=== PATIENT | female | born 2005 | race Caucasian/White ===

== ENCOUNTER 2024-01-02 10:32 | Inpatient (IN) | payer OTHER ==
[2024-01-02] MEDS: LACTATED RINGERS 1,000 ML IV SCH (11:18)
[2024-01-02 11:26] LABS: Glucose,Whole Blood 82 mg/dL (70-110)
[2024-01-02] MEDS ORDERED: TRANEXAMIC 1,000 MG/100ML-NACL 1,000 MG in EMPTY BAG 1 BAG IV PRN (11:30)
[2024-01-02] MEDS ORDERED: LIDOCAINE 0.5% (PF) 5 MG/ML (50 ML SDV) SQ PRN (11:30)
[2024-01-02] MEDS ORDERED: OXYTOCIN 10 UNIT/ML 1 ML VIAL IM PRN (11:30)
[2024-01-02] MEDS ORDERED: TERBUTALINE 1 MG/ML VIAL SQ PRN (11:30)
[2024-01-02] MEDS ORDERED: CARBOPROST TROMETHAMINE 250 MCG/ML 1 ML AMP IM PRN (11:30)
[2024-01-02] MEDS ORDERED: METHYLERGONOVINE 0.2 MG/ML 1 ML AMP IM PRN (11:30)
[2024-01-02] MEDS ORDERED: miSOPROStoL 200 MCG TAB PO PRN (11:30)
[2024-01-02] MEDS: AMPICILLIN 2,000 MG in SODIUM CHLORIDE 0.9% 100 ML IVPB STA (11:46)
--- NOTE | 2024-01-02 11:46 | P.HPOB ---
History of Present Illness H&P Date: 01/02/24 Chief Complaint: IUP at 35 and 0/7 weeks, premature rupture of membranes 18-year-old 1 para 0 at 35-0/7 weeks that presents with complaints of spontaneous rupture of membranes this a.m. around 6:00. Patient states fluid was clear in nature. Patient denies contractions. Patient has been receiving routine care that has been complicated by diagnosis of gestational diabetes, late care. Blood sugars have been moderately well- controlled. On blood work this patient has a blood type B+, rubella status immune RPR is nonreactive, hepatitis B surface engine negative, HIV negative, group beta strep culture is unknown as she is 35 weeks. Review of Systems Constitutional: Denies chills, Denies fatigue, Denies fever Ears, nose, mouth and throat: Denies headache Cardiovascular: Reports leg edema Respiratory: Denies dyspnea Gastrointestinal: Denies nausea, Denies vomiting Genitourinary: Reports Medications and Allergies Home Medications Medication Instructions Recorded Confirmed Type Pnv No.154/Iron Fum/Folic Acid 1 tablet PO DAILY 01/02/24 01/02/24 History [ Plus Vitamin Tablet] Allergies Allergy/AdvReac Type Severity Reaction Status Date / Time No Known Allergies Allergy Verified 01/02/24 10:45 Exam Osteopathic Statement: *. No significant issues noted on an osteopathic structural exam other than those noted in the History and Physical/Consult. Intake and Output 01/01/24 01/02/24 01/02/24 22:59 06:59 14:59 Other: Weight 83.915 kg Targeted physical exam is performed this date General is well-nourished well- developed female in no acute distress, breathing is nonlabored, heart has regular and rhythm, abdomen is gravid, on cervical exam she is 1/80/-2 station grossly ruptured positive AmniSure. heart tones are noted to be category 1 and she is raymond irregularly. Assessment and Plan (1) 35 weeks gestation of Current Visit: Yes Status: Acute Code(s): Z3A.35 - 35 WEEKS GESTATION OF SNOMED Code(s): 07843962 (2) premature rupture of membranes (PPROM) with unknown onset of labor Current Visit: Yes Status: Acute Code(s): O42.919 - PRETRM CANDIS ROM, UNSP TIME BETW RUPT AND ONST LABR, UNSP TRI SNOMED Code(s): 07098857039741226 Plan: 18-year-old G1, P0 at 35-0/7 weeks that presents with premature rupture of membranes. Patient is admitted. Options for analgesia are discussed including Nubain, nitrous, epidural. Antibiotics given early gestational age are begun along with Pitocin for augmentation of labor. Plan is reviewed with patient and her support person. All questions were answered.
[2024-01-02] MEDS: OXYTOCIN 30 UNITS/500 ML NS 30 UNIT in SALINE 1 500ML.BAG IV SCH (11:47)
[2024-01-02 12:06] LABS: Basophils # (A) 0.1 k/uL (0-0.2); Basophils % (A) 1 %; Eosinophils % (A) 0 %; HCT 40.7 % (34.0-46.0); HGB 13.7 gm/dL (11.4-16.0); Lymphocytes # (A) 1.3 k/uL (1.0-4.8); Lymphocytes % (A) 14 %; MCH 31.4 pg (25.0-35.0); MCHC 33.6 g/dL (31.0-37.0); MCV 93.3 fL (80.0-100.0); Monocytes # (A) 0.4 k/uL (0-1.0); Monocytes % (A) 4 %; Neutrophils # (A) 7.7 k/uL (1.3-7.7); Neutrophils % (A) 80 %; Platelet Count 280 k/uL (150-450); RBC 4.36 m/uL (3.80-5.40); RDW 13.1 % (11.5-15.5); WBC 9.7 k/uL (4.0-11.0)
[2024-01-02] MEDS ORDERED: fentaNYL (PF) 50 MCG/ML 5 ML AMP ONE (15:38)
[2024-01-02] MEDS ORDERED: SODIUM CHLORIDE 0.9% 250 ML BAG ONE (15:38)
[2024-01-02] MEDS ORDERED: ROPIVACAINE 5 MG/ML 30 ML VIAL ONE (15:38)
[2024-01-02] MEDS: AMPICILLIN 1,000 MG in SODIUM CHLORIDE 0.9% 50 ML IVPB SCH (15:43)
[2024-01-03] MEDS ORDERED: diphenhydrAMINE 50 MG/ML 1 ML VIAL IVP PRN ×2 (02:49)
[2024-01-03] MEDS ORDERED: diphenhydrAMINE 50 MG CAP PO PRN (02:49)
[2024-01-03] MEDS ORDERED: LANOLIN CREAM 1 GM TUBE TOPICAL PRN (02:49)
[2024-01-03] MEDS ORDERED: BENZOCAINE/MENTHOL SPRAY 1 GM/SPRAY AEROSOL TOPICAL PRN (02:49)
[2024-01-03] MEDS ORDERED: ZOLPIDEM 5 MG TAB PO PRN (02:49)
[2024-01-03] MEDS ORDERED: diphenhydrAMINE 25 MG CAP PO PRN (02:49)
[2024-01-03] MEDS ORDERED: HYDROCORTISONE 2.5% RECTAL CREAM 30 GM TUBE RECTAL PRN (02:49)
[2024-01-03] MEDS ORDERED: SIMETHICONE 80 MG CHEWABLE PO PRN (02:49)
--- NOTE | 2024-01-03 02:49 | P.PROBDLV ---
Vaginal Delivery Note - . Vaginal Delivery Note: DATE OF SERVICE: 01/03/2024 PROCEDURE: Normal Vaginal Delivery ATTENDING: Dr. Concetta Wick MD ESTIMATED BLOOD LOSS: 200 mL FINDINGS: VMI, Apgars 9/9. Weight 6 pounds and 6 ounces (2885 grams). PROCEDURE: Ms. Mcnamara is a 18 year old at 35 weeks and 1 day presenting to labor and delivery for PPROM at 600 on 01/01 revealing clear amniotic fluid. The has been complicated by diet-controlled gestational diabetes and late care. For further details, please review the admitting H&P. Pitocin augmentation was started per protocol. The patient received epidural anesthesia per her request. The patient was completely dilated at 100 on 01/02. She pushed effectively with Category I heart tones. A viable male infant was delivered at 226 over an intact perineum. The infant was placed on the maternal abdomen and bulb suctioned. The was noted to be spontaneously crying. Cord was clamped and cut after a 2-minute delay. The was handed off to the pediatric team. Placenta was delivered whole with gentle cord traction at 230. Oxytocin was started to facilitate uterine tone. Uterine fundus was found to be firm and below the umbilicus upon fundal massage. Thorough examination of the cervix, vagina, periurethral area, and perineum revealed no lacerations. The patient is stable and allowed to begin the bonding process.
[2024-01-03] MEDS: SENNOSIDES-DOCUSATE SODIUM 1 EACH TAB PO SCH (09:19)
[2024-01-03] MEDS: IBUPROFEN 600 MG TAB PO PRN (15:19)
[2024-01-03] MEDS: ACETAMINOPHEN TAB 325 MG TAB PO PRN (19:42)
[2024-01-04 06:55] LABS: Basophils # (A) 0.1 k/uL (0-0.2); Basophils % (A) 1 %; Eosinophils # (A) 0.1 k/uL (0-0.7); Eosinophils % (A) 1 %; HGB 11.8 gm/dL (11.4-16.0); Lymphocytes % (A) 31 %; MCH 32.1 pg (25.0-35.0); MCHC 33.7 g/dL (31.0-37.0); MCV 95.3 fL (80.0-100.0); Mean Platelet Volume 8.8; Monocytes # (A) 0.7 k/uL (0-1.0); Monocytes % (A) 7 %; Neutrophils # (A) 5.8 k/uL (1.3-7.7); Neutrophils % (A) 59 %; Platelet Count 264 k/uL (150-450); RBC 3.67 m/uL (3.80-5.40); RDW 13.2 % (11.5-15.5); WBC 9.8 k/uL (4.0-11.0)
--- NOTE | 2024-01-04 09:39 | P.PNOBGVD ---
Subjective - Subjective Principal diagnosis: s/p normal vaginal delivery Interval history: The patient is doing well this morning and had no acute events overnight. She has no complaints this morning. She reports minimal lochia, passing flatus, voiding without difficulty, ambulating, and eating/drinking without nausea or vomiting. She is formula feeding her infant. Baby boy is in the nursery for intolerance to feeds. She denies chest pain, shortness of breathing, fevers, or chills overnight. She denies pain or swelling in the legs. Patient reports: Reports appetite normal, Reports voiding normally, Reports pain well controlled, Reports ambulating normally : other (in nursery, IV fluids and NG tube) Objective - Latest Vital Signs Latest vital signs: Vital Signs Temp Pulse Resp BP Pulse Ox 01/04/24 09:00 97.6 F 75 16 121/71 01/04/24 00:00 98.7 F 71 16 108/66 98 01/03/24 15:13 98.6 F 76 16 110/74 - Exam Extremities: Present: normal Abdomen: Present: normal appearance, soft Uterus: Present: normal, firm - Labs Labs: Abnormal Lab Results - Last 24 Hours (Table) 01/04/24 Range/Units 06:44 RBC 3.67 L (3.80-5.40) m/uL Assessment and Plan Assessment: 18 year old now PPD#1 s/p normal vaginal delivery after PPROM at 35 weeks Plan: 1. . Patient meeting all milestones appropriately. 2. Male infant. In the nursery for prematurity and not tolerating feeds. Will need circumcision. Dispo: Anticipate discharge home tomorrow. Continue inpatient management at this time.
[2024-01-05 08:16] VITALS: BP 124/77; PULSE 75; RESP 16; TEMP 97.6
--- NOTE | 2024-01-05 11:53 | P.DS ---
Providers Date of admission: 01/02/24 11:17 Expected date of discharge: 01/05/24 Attending physician: Kianna Schroeder Primary care physician: Stated None - Discharge Diagnosis(es) (1) 35 weeks gestation of Current Visit: Yes Status: Acute (2) premature rupture of membranes (PPROM) with unknown onset of labor Current Visit: Yes Status: Acute (3) Gestational diabetes Current Visit: Yes Status: Acute (4) Normal vaginal delivery Current Visit: Yes Status: Acute Hospital Course: 18-year-old 1 now para 1 that presented to labor and delivery on with complaints of spontaneous rupture of membranes. Patient was noted to be 35 weeks at that time. Patient was admitted to labor and delivery and gross rupture of membranes was appreciated. Patient was noted to be 1 cm dilated. Patient was admitted Pitocin augmentation of labor was begun along with antibiotic prophylaxis. Patient progressed slowly through labor eventually becoming uncomfortable and requesting epidural placement. Patient progressed to complete began pushing and had a viable female infant at 226, weight of 6 pounds 5.8 ounces, Apgars of 9 and 9 at 1 and 5 minutes respectively. Patient's was complicated by gestational diabetes that was diet-controlled. Patient's course has been uneventful. In this day #1 she is ambulating and voiding without difficulty. She is tolerating a regular diet without nausea or vomiting. States her pain is well-controlled. She would like discharge home today. Patient Condition at Discharge: Good Plan - Discharge Summary New Discharge Prescriptions: No Action Pnv No.154/Iron Fum/Folic Acid [ Plus Vitamin Tablet] 1 tablet PO DAILY Discharge Medication List Pnv No.154/Iron Fum/Folic Acid [ Plus Vitamin Tablet] 1 tablet PO DAILY 01/02/24 [History] Follow up Appointment(s)/Referral(s): Kianna Schroeder DO [Doctor of Osteopathic Medicine] - 1 Week (PP 02/16/2024 @9:15Am) Patient Instructions/Handouts: Vaginal Delivery (DC) Discharge Disposition: HOME SELF-CARE
== END 2024-01-05 12:22 | disposition home or self-care (01) | DRG 560 ==
LOC: FBPOP 10:32 → 4FBP 11:17
PROVIDERS: ADMIT Obstetrics & Gynecology Obstetrics; ATTEND Obstetrics & Gynecology Obstetrics
PROC: 10E0XZZ Delivery of Products of Conception, External Approach (ICD-10-PCS; principal; 2024-01-03)
PROC: 3E033VJ Introduction of Other Hormone into Peripheral Vein, Percutaneous Approach (ICD-10-PCS; 2024-01-03)
DX: O24.420 Gestational diabetes mellitus in childbirth, diet controlled (principal); O42.913 Preterm premature rupture of membranes, unspecified as to length of time between rupture and onset of labor, third trimester; Z37.0 Single live birth; Z3A.35 35 weeks gestation of pregnancy
CPT/HCPCS: 59025; 84112; 85025; 86850; 86900; 86901; 88307; 99213

== ENCOUNTER → 2024-04-19 | Outpatient (CLI) | payer OTHER | END | disposition home or self-care (01) | LOC: LABPRL 12:34 | PROVIDERS: ATTEND Urology | CPT/HCPCS: 87086 ==

== ENCOUNTER 2024-04-23 07:30 | Day surgery (SDC) | payer OTHER ==
[~2024-04-23 07:30] MED LIST: DEXAMETHASONE SOD PHOSPHATE 4 MG/ML 1 ML VIAL ONE; IOPAMIDOL-370 100ML BTL ONE; LACTATED RINGERS 1,000 ML BAG ONE; LIDOCAINE 1% INJ 10MG/ML (20 ML MDV) ONE; MIDAZOLAM 2 MG/2 ML VIAL ONE; ONDANSETRON 4 MG/2 ML VIAL ONE; PROPOFOL 10 MG/ML 20 ML VIAL IV ONE; SCOPOLAMINE 1 MG/72 HR PATCH TRANSDERM ONE; ceFAZolin 1 GM/50 ML BAG (PMX) ONE; fentaNYL (PF) 50 MCG/ML 2 ML AMP ONE
--- NOTE | 2024-05-14 12:04 | HP ---
HISTORY AND PHYSICAL DIAGNOSIS: Right ureteral stone. PROCEDURE TO BE PERFORMED: Right ureteroscopy with laser lithotripsy. Hermila Mcnamara is a pleasant 18-year-old female, who developed severe flank pain. She was in the emergency room at the time of referral from [place] and was stated to have UPJ stone. The patient was identified to have a 7 mm distal ureteral stone with chronic hydronephrosis. She comes for right ureteroscopy, laser lithotripsy. Risks and complications have been outlined. PAST MEDICAL HISTORY: ALLERGIES: None. MEDICATIONS: . SURGICAL HISTORY: Negative. REVIEW OF SYSTEMS: Negative. PHYSICAL EXAMINATION: VITAL SIGNS: 172 pounds, 6 feet 3 inches. HEENT: Clear. CHEST: Clear to auscultation. HEART: Without murmur or gallop. ABDOMEN: Soft. No mass or organomegaly. EXTREMITIES: No edema. NEUROLOGICAL: Grossly intact. IMPRESSION: This patient has a right ureteral calculus with chronic hydronephrosis. She comes for cysto, right ureteroscopy, laser lithotripsy, and stent placement. MMODL / IJN: [id number] /
--- NOTE | 2024-05-17 10:01 | OP ---
OPERATIVE REPORT DATE OF SERVICE : DIAGNOSES: Right ureteral calculus with obstruction and chronic hydronephrosis. PROCEDURES PERFORMED: Cysto, bilateral retrograde pyelograms, right ureteroscopy, laser lithotripsy and stent placement 6 x 24. ANESTHESIA: General. INDICATIONS: Hermila Mcnamara is a 18-year-old female who came from [facility] with flank pain. She initially had it on the right side and then had it on the left side. She had a CAT scan at [facility] identifying chronic significant right hydronephrosis due to an obstructing stone below the iliac vessels. No other stones were seen. She is not having any pain at this point in time. The KUB is uncertain as to whether we see a stone. DESCRIPTION OF PROCEDURE: The patient was brought to the operating suite, given a general anesthetic. Placed in lithotomy position with sterile prep and drape. Cystoscopy for oblique lens and 22- Albanian sheath identifies normal urethra. The ureters were normal. The bladder mucosa was unremarkable. Within a cone-tipped catheter and contrast, a right retrograde pyelogram performed. I can see the stone on the fluoroscopy just below the iliac vessels and the contrast goes to that point and stops. I then elected to do a left retrograde pyelogram because she did have left flank pain. The ureter is of normal course and caliber. There was no hydroureteronephrosis or filling defects noted. I then passed a semirigid rigid ureteroscope up the right ureter to the stone. The stone was seen. With a 365-micron laser probe, the stone was broken into tiny pieces and flushed out of the ureter. At the end of the procedure, there was no significant stone. Because of the amount of hydronephrosis, a stent will be placed for a few weeks. An 0.035 wire was then passed through the ureteral scope up into the kidney, I removed the ureteroscope and then over the wire passed a 6 x 24 double-J catheter that coils in the renal pelvis and in the bladder. The bladder was drained. Stones fragments were sent to pathology. The patient was awakened, returned to recovery in good condition. She will be discharged home upon recovery in the fall in the office in 2 to 3 weeks for stent removal. MMODL / IJN: [id number] /
--- NOTE | 2024-05-17 12:29 | XR ---
Patient: Hermila Mcnamara Ordering Physician: Unknown, Unknown ID: [id number] Phone, Pager: Phone: N/A Pager: N/A : 2005 Age/Gender: 18Y, F Primary Location: N/A Procedure: XR KUB Study Date: 04/23/2024 6:19:00 AM EXAMINATION TYPE: XR KUB DATE OF EXAM: 04/23/2024 Comparison: None Clinical History: 18-year-old presurgical for right sided stones Findings: Nonobstructive bowel gas pattern. Scattered [id number] stool. Left-sided pelvic phleboliths. No definite suspicious calcifications radiographically apparent. Impression: No definite suspicious calcification is radiographically apparent. Left-sided pelvic phleboliths. Sca ttered [id number] stool.
--- NOTE | 2024-06-01 18:20 | FL ---
EXAMINATION TYPE: FL urography retrograde DATE OF EXAM: 05/04/2024 12:06 PM COMPARISON: Pre Operative Images if available both CT/MRI or plain film CLINICAL INDICATION: Female, 18 years old with history of Cysto w/stent insertion; TECHNIQUE: FL urography retrograde, multiple fluoroscopic images provided for procedure. Total fluoroscopy time: 1.28 minutes Total submitted images to PACS: 4 DAP: 9.0458 mGym2 Gycm2 uGym2 cGycm2 or equivalent. FINDINGS: Multiple intraoperative fluoroscopic images were taken resulting in ureteral stent placement with sup erior pigtail in appropriate position projecting over the renal pelvis. No immediate intraoperative c omplication. No evidence of extravasation contrast within the left ureter visualized. Mild narrowing at the pelvic brim of the ureter. Multilevel degeneration changes throughout the spine. IMPRESSION: 1. No evidence for intraoperative complication. 2. Please see the operative/procedural note for further details. [facility], , 06/01/2024 6:17 PM
== END 2024-04-23 09:45 ==
LOC: OR 07:30
PROVIDERS: ATTEND Urology
DX: N13.2 Hydronephrosis with renal and ureteral calculous obstruction (principal)
CPT/HCPCS: 74018; 74420

== ENCOUNTER 2024-07-21 18:33 | Emergency (ER) | payer OTHER ==
--- NOTE | 2024-07-21 19:32 | ED ---
Abdominal Pain HPI - General Chief Complaint: Abdominal Pain Stated Complaint: ABD pain Time Seen by Provider: 07/21/24 19:27 Source: patient, RN notes reviewed Mode of arrival: ambulatory Limitations: no limitations - History of Present Illness Initial Comments: 18-year-old female presenting to the ER with chief complaint of right flank pain x 1 hour. States it is an intermittent pain that radiates to the left side and down the left leg. Denies nausea, vomiting, fever, urinary symptoms. States she recently underwent lithotripsy 2 months ago with stent placement for right- sided kidney stone with Dr. Dang. Dr. Dang told her that she has chronic residual inflammation of the kidney. She states she has not had this pain before. Denies history of abdominal surgeries or other health conditions. Last menstrual period last week. Denies vaginal bleeding or vaginal discharge. - Related Data Home Medications Medication Instructions Recorded Confirmed Pnv No.154/Iron Fum/Folic Acid 1 tablet PO DAILY 01/02/24 01/02/24 [ Plus Vitamin Tablet] Allergies Allergy/AdvReac Type Severity Reaction Status Date / Time No Known Allergies Allergy Verified 07/21/24 18:54 Review of Systems ROS Statement: Those systems with pertinent positive or pertinent negative responses have been documented in the HPI. ROS Other: All systems not noted in ROS Statement are negative. Past Medical History Past Medical History: No Reported History History of Any Multi-Drug Resistant Organisms: None Reported Past Surgical History: No Surgical Hx Reported Additional Past Surgical History / Comment(s): lithotripsy Past Anesthesia/Blood Transfusion Reactions: No Reported Reaction Past Psychological History: No Psychological Hx Reported Smoking Status: Never smoker Past Alcohol Use History: None Reported Past Drug Use History: None Reported - Past Family History Father Family Medical History: Diabetes Mellitus Brother(s) Additional Family Medical History / Comment(s): down syndrome General Exam Limitations: no limitations General appearance: alert, in no apparent distress Head exam: Present: atraumatic, normocephalic, normal inspection Neck exam: Present: normal inspection. Absent: tenderness, meningismus, lymphadenopathy Respiratory exam: Present: normal lung sounds bilaterally. Absent: respiratory distress, wheezes, rales, rhonchi, stridor Cardiovascular Exam: Present: regular rate, normal rhythm, normal heart sounds. Absent: systolic murmur, diastolic murmur, rubs, gallop, clicks GI/Abdominal exam: Present: soft, normal bowel sounds. Absent: distended, tenderness, guarding, rebound, rigid Back exam: Absent: CVA tenderness (R), CVA tenderness (L) Neurological exam: Present: alert, oriented X3 Psychiatric exam: Present: normal affect, normal mood Skin exam: Present: warm, dry, intact, normal color. Absent: rash Course Vital Signs 07/21/24 07/21/24 18:55 22:25 Temperature 98 F 98.0 F Pulse Rate 72 66 Respiratory 18 16 Rate Blood Pressure 126/78 130/76 O2 Sat by Pulse 100 98 Oximetry Medical Decision Making - Medical Decision Making Was pt. sent in by a medical professional or institution (, PA, COSMETIC MANAGER, urgent care, hospital, or [facility]...) When possible be specific @ -No Did you speak to anyone other than the patient for history (EMS, parent, family, police, friend...)? What history was obtained from this source @ -No Did you review nursing and triage notes (agree or disagree)? Why? @ -I reviewed and agree with nursing and triage notes Were old charts reviewed (outside hosp., previous admission, EMS record, old EKG, old radiological studies, urgent care reports/EKG's, [facility] records)? Report findings @ -No old charts were reviewed Differential Diagnosis (chest pain, altered mental status, abdominal pain women, abdominal pain men, vaginal bleeding, weakness, fever, dyspnea, syncope, headache, dizziness, GI bleed, back pain, seizure, CVA, palpatations, mental health, musculoskeletal)? @ -Differential Abdominal Pain Women: Appendicitis, Cholecystitis, diverticulosis, ischemic bowel, pancreatitis, hepatitis, UTI, gastroenteritis, AAA, incarcerated hernia, bowel obstruction, constipation, inflammatory bowel, hepatitis, peptic ulcer disease, splenic infarction, perforated viscus, vulvitis, ovarian torsion, PID, kidney stone, placenta abruption, this is not meant to be an all-inclusive list EKG interpreted by me (3pts min.). @ -None X-rays interpreted by me (1pt min.). @ -None done CT interpreted by me (1pt min.). @ -CT abdomen pelvis reveals no acute abnormality, moderate to large colonic stool burden suggestive of constipation U/S interpreted by me (1pt. min.). @ -None done What testing was considered but not performed or refused? (CT, X-rays, U/S, labs)? Why? @ -Pelvic ultrasound considered however deferred due to pain located in upper abdomen, no red flag symptoms to suggest pelvic process What meds were considered but not given or refused? Why? @ -Patient declines pain medication Did you discuss the management of the patient with other professionals (professionals i.e. Dr., PA, COSMETIC MANAGER, lab, RT, psych nurse, licensed clinical social worker, metal tank builder, teacher, correctional officer sergeant, renal case manager)? Give summary @ -No Was smoking cessation discussed for >3mins.? @ -No Was critical care preformed (if so, how long)? @ -No Were there social determinants of health that impacted care today? How? (Homelessness, low income, unemployed, alcoholism, drug addiction, transportation, low edu. Level, literacy, decrease access to med. care, residential, rehab)? @ -No Was there de-escalation of care discussed even if they declined (Discuss DNR or withdrawal of care, Hospice)? DNR status @ -No What co-morbidities impacted this encounter? (DM, HTN, Smoking, COPD, CAD, Cancer, CVA, ARF, Chemo, Hep., AIDS, mental health diagnosis, sleep apnea, morbid obesity)? @ -None Was patient admitted / discharged? Hospital course, mention meds given and route, prescriptions, significant lab abnormalities, going to OR and other pertinent info. @ -Discharged. This is a 18-year-old female presenting with right flank pain x 1 hour. Patient does have history of chronic right kidney inflammation status post lithotripsy with stent placement with Dr. Dang. Vital signs within acceptable limits. Abdomen soft nontender. No CVA tenderness. Patient is provided with IV fluids. Lab work including CBC, CMP, lactic acid, lipase unremarkable. Urinalysis largely unremarkable, urine negative. CT abdomen pelvis reveals no acute abnormality, large stool burden suggestive of constipation. Results discussed with patient. There does not appear to be emergent etiology causing symptoms at this time, I believe it is safe to discharge patient home with appropriate return precautions and follow-up care. Patient is agreeable to this plan. Case was discussed with my ED attending Dr. Wade. Patient discharged in stable condition. Undiagnosed new problem with uncertain prognosis? @ -No Drug Therapy requiring intensive monitoring for toxicity (Heparin, Nitro, Insulin, Cardizem)? @ -No Were any procedures done? @ -No Diagnosis/symptom? @ -Right flank pain Acute, or Chronic, or Acute on Chronic? @ -Acute Uncomplicated (without systemic symptoms) or Complicated (systemic symptoms)? @ -Uncomplicated Side effects of treatment? @ -No Exacerbation, Progression, or Severe Exacerbation? @ -No Poses a threat to life or bodily function? How? (Chest pain, USA, NC, pneumonia, PE, COPD, DKA, ARF, appy, cholecystitis, CVA, Diverticulitis, Homicidal, Suicidal, threat to staff... and all critical care pts) @ -Unlikely at this time - Lab Data Result diagrams: 07/21/24 20:07/21/24: Lab Results 07/21/24 07/21/24 07/21/24 Range/Units : 20:: WBC 7.6 (4.0-11.0) k/uL RBC 4.81 (3.80-5.40) m/uL Hgb 14.6 (11.4-16.0) gm/dL Hct 44.1 (34.0-46.0) % MCV 91.7 (80.0-100.0) fL MCH 30.3 (25.0-35.0) pg MCHC 33.0 (31.0-37.0) g/dL RDW 12.1 (11.5-15.5) % Plt Count 325 (150-450) k/uL MPV 7.5 Neutrophils % 62 % Lymphocytes % 30 % Monocytes % 4 % Eosinophils % 2 % Basophils % 1 % Neutrophils # 4.7 (1.3-7.7) k/uL Lymphocytes # 2.2 (1.0-4.8) k/uL Monocytes # 0.3 (0-1.0) k/uL Eosinophils # 0.1 (0-0.7) k/uL Basophils # 0.1 (0-0.2) k/uL Sodium 138 (137-145) mmol/L Potassium 3.9 (3.5-5.1) mmol/L Chloride 104 (98-107) mmol/L Carbon Dioxide 24 (22-30) mmol/L Anion Gap 10 mmol/L BUN 12 (7-17) mg/dL Creatinine 0.57 (0.52-1.04) mg/dL Est GFR (CKD-EPI)AfAm >90 (>60 ml/min/1.73 sqM) Est GFR (CKD-EPI)NonAf >90 (>60 ml/min/1.73 sqM) Glucose 90 (74-99) mg/dL Plasma Lactic Acid Erlin 1.4 (0.7-2.0) mmol/L Calcium 9.7 (8.4-10.2) mg/dL Total Bilirubin 0.3 (0.2-1.3) mg/dL AST 22 (14-36) U/L ALT 28 (4-34) U/L Alkaline Phosphatase 126 (38-126) U/L Total Protein 8.1 (6.3-8.2) g/dL Albumin 4.7 (3.5-5.0) g/dL Lipase 97 (23-300) U/L Urine Color Urine Appearance (Clear) Urine pH (5.0-8.0) Ur Specific [place] (1.001-1.035) Urine Protein (Negative) Urine Glucose (UA) (Negative) Urine Ketones (Negative) Urine Blood (Negative) Urine Nitrite (Negative) Urine Bilirubin (Negative) Urine Urobilinogen (<2.0) mg/dL Ur Leukocyte Esterase (Negative) Urine RBC (0-5) /hpf Urine WBC (0-5) /hpf Ur Squamous Epith Cells (0-4) /hpf Urine Bacteria (None) /hpf Hyaline Casts (0-2) /lpf Urine Mucus (None) /hpf Urine HCG, Qual (Not Detectd) 07/21/24 07/21/24 Range/Units 20:50 20:50 WBC (4.0-11.0) k/uL RBC (3.80-5.40) m/uL Hgb (11.4-16.0) gm/dL Hct (34.0-46.0) % MCV (80.0-100.0) fL MCH (25.0-35.0) pg MCHC (31.0-37.0) g/dL RDW (11.5-15.5) % Plt Count (150-450) k/uL MPV Neutrophils % % Lymphocytes % % Monocytes % % Eosinophils % % Basophils % % Neutrophils # (1.3-7.7) k/uL Lymphocytes # (1.0-4.8) k/uL Monocytes # (0-1.0) k/uL Eosinophils # (0-0.7) k/uL Basophils # (0-0.2) k/uL Sodium (137-145) mmol/L Potassium (3.5-5.1) mmol/L Chloride (98-107) mmol/L Carbon Dioxide (22-30) mmol/L Anion Gap mmol/L BUN (7-17) mg/dL Creatinine (0.52-1.04) mg/dL Est GFR (CKD-EPI)AfAm (>60 ml/min/1.73 sqM) Est GFR (CKD-EPI)NonAf (>60 ml/min/1.73 sqM) Glucose (74-99) mg/dL Plasma Lactic Acid [place]lin (0.7-2.0) mmol/L Calcium (8.4-10.2) mg/dL Total Bilirubin (0.2-1.3) mg/dL AST (14-36) U/L ALT (4-34) U/L Alkaline Phosphatase (38-126) U/L Total Protein (6.3-8.2) g/dL Albumin (3.5-5.0) g/dL Lipase (23-300) U/L Urine Color Colorless Urine Appearance Cloudy H (Clear) Urine pH 6.5 (5.0-8.0) Ur Specific [place] 1.020 (1.001-1.035) Urine Protein Negative (Negative) Urine Glucose (UA) Negative (Negative) Urine Ketones Negative (Negative) Urine Blood Large H (Negative) Urine Nitrite Negative (Negative) Urine Bilirubin Negative (Negative) Urine Urobilinogen <2.0 (<2.0) mg/dL Ur Leukocyte Esterase Large H (Negative) Urine RBC 1 (0-5) /hpf Urine WBC 6 H (0-5) /hpf Ur Squamous Epith Cells 4 (0-4) /hpf Urine Bacteria Rare H (None) /hpf Hyaline Casts 1 (0-2) /lpf Urine Mucus Occasional H (None) /hpf Urine HCG, Qual Not Detected (Not Detectd) Disposition Clinical Impression: Right flank pain Disposition: HOME SELF-CARE Condition: Stable Additional Instructions: Follow-up with Dr. Dang and PCP. Please return to the Emergency Department if symptoms worsen or any other concerns. Is patient prescribed a controlled substance at d/c from ED?: No Referrals: None,Stated [Primary Care Provider] - 1-2 days Time of Disposition: 22:01
[2024-07-21] MEDS: SODIUM CHLORIDE 0.9% 1,000 ML IV STA (20:20)
[2024-07-21 20:37] LABS: Basophils # (A) 0.1 k/uL (0-0.2); Basophils % (A) 1 %; Eosinophils # (A) 0.1 k/uL (0-0.7); Eosinophils % (A) 2 %; HCT 44.1 % (34.0-46.0); HGB 14.6 gm/dL (11.4-16.0); Lymphocytes # (A) 2.2 k/uL (1.0-4.8); Lymphocytes % (A) 30 %; MCH 30.3 pg (25.0-35.0); MCV 91.7 fL (80.0-100.0); Mean Platelet Volume 7.5; Monocytes # (A) 0.3 k/uL (0-1.0); Monocytes % (A) 4 %; Neutrophils # (A) 4.7 k/uL (1.3-7.7); Neutrophils % (A) 62 %; Platelet Count 325 k/uL (150-450); RBC 4.81 m/uL (3.80-5.40); RDW 12.1 % (11.5-15.5); WBC 7.6 k/uL (4.0-11.0)
[2024-07-21 20:50] LABS: ALT 28 U/L (4-34); AST 22 U/L (14-36); African American GFR (CKD) >90 (>60 ml/min/1.73 sqM); Albumin 4.7 g/dL (3.5-5.0); Alkaline Phosphatase 126 U/L (38-126); Anion Gap 10 mmol/L; Blood Urea Nitrogen 12 mg/dL (7-17); Calcium 9.7 mg/dL (8.4-10.2); Carbon Dioxide 24 mmol/L (22-30); Chloride 104 mmol/L (98-107); Glucose 90 mg/dL (74-99); Lipase 97 U/L (23-300); Non-African American GFR(CKD) >90 (>60 ml/min/1.73 sqM); Potassium 3.9 mmol/L (3.5-5.1); Sodium 138 mmol/L (137-145); Total Bilirubin 0.3 mg/dL (0.2-1.3); Total Protein 8.1 g/dL (6.3-8.2)
[2024-07-21 21:16] LABS: Appearance,Urine Cloudy (Clear); Bacteria,Urine Rare /hpf; Bilirubin,Urine Negative (Negative); Blood,Urine Large (Negative); Color,Urine Colorless; Glucose,Urine (UA) Negative (Negative); Hyaline Casts,Urine 1 /lpf (0-2); Ketones,Urine Negative (Negative); Leukocyte Esterase,Urine Large (Negative); Mucus,Urine Occasional /hpf; Nitrite,Urine Negative (Negative); PH, Urine 6.5 (5.0-8.0); Protein,Urine Negative (Negative); RBC,Urine 1 /hpf (0-5); Squamous Epithelial Cell,Urine 4 /hpf (0-4); Urobilinogen,Urine <2.0 mg/dL (<2.0); WBC,Urine 6 /hpf (0-5)
--- NOTE | 2024-07-21 21:49 | CT ---
EXAMINATION TYPE: CT abdomen pelvis wo con DATE OF EXAM: 07/21/2024 9:42 PM COMPARISON: Previous radiograph 04/03/2024. CLINICAL INDICATION: Female, 18 years old with history of right flank pain; Pt c/o R side pain that a lso goes to L side and down L leg. States feels like kidney pain; had kidney stones removed end of A ugust. States urology is following d/t kidney inflammation. TECHNIQUE: Axial CT abdomen pelvis wo con;Sagittal and coronal reformats were created on a separate workstation. CT DLP: 631.9 mGycm, Automated exposure control for dose reduction was used. FINDINGS: LOWER CHEST: Unremarkable ABDOMEN LIVER: Unremarkable GALLBLADDER AND BILE DUCTS: Unremarkable. PANCREAS: Unremarkable. SPLEEN: Unremarkable. ADRENAL GLANDS: Unremarkable. KIDNEYS AND URETERS: No evidence of hydronephrosis or renal calculus. The ureters are unremarkable. PELVIS BLADDER: No evidence for wall thickening or mass given limitations of exam. REPRODUCTIVE: Unremarkable. ABDOMEN & PELVIS STOMACH AND BOWEL: Stomach and duodenum are unremarkable. No evidence of bowel obstruction. Appendix visualized and appears normal. Moderate to large volume colonic stool burden. PERITONEUM/RETROPERITONEUM: No evidence of pneumoperitoneum or free fluid. VASCULATURE: No evidence of aortic aneurysm. MUSCULOSKELETAL: No acute osseous abnormalities LYMPH NODES: No gross evidence for lymphadenopathy. SOFT TISSUE/ABDOMINAL WALL: Unremarkable IMPRESSION: 1. No acute abnormality in the abdomen/pelvis or CT findings to explain reported symptoms. 2. Moderate to large colonic stool burden suggestive of constipation. [facility], , 07/21/2024 9:47 PM
[2024-07-21 22:25] VITALS: BP 130/76; PULSE 66; RESP 16; TEMP 98
== END 2024-07-21 22:25 | disposition home or self-care (01) ==
LOC: EC 18:33
DX: R10.13 Epigastric pain (principal)
CPT/HCPCS: 36415; 74176; 80053; 81001; 81025; 83605; 83690; 85025; 96360; 99284